=== PATIENT | male | born 1950 ===

== ENCOUNTER 2016-06-17 16:06 | Emergency (ER) | payer MEDICAID, MEDICARE ==
[2016-06-17 16:16] VITALS: TEMP 98.6
[2016-06-17] MEDS ORDERED: KETOROLAC TROMETHAMINE 30 MG/ML SOL IM ONE (17:16)
[2016-06-17] MEDS ORDERED: KETOROLAC TROMETHAMINE 30 MG/ML SOL ONE (17:18)
[2016-06-17 17:38] VITALS: BP 153/73; PULSE 75; RESP 18; O2SAT 96
== END 2016-06-17 17:52 | disposition home or self-care (01) | DRG 566 ==
LOC: ED 16:06
DX: M99.81 Other biomechanical lesions of cervical region (principal); M89.38 Hypertrophy of bone, other site
CPT/HCPCS: 72125; 93005; 99284; J1885

== ENCOUNTER 2016-06-26 10:32 | Emergency (ER) | payer MEDICARE, MEDICAID ==
[2016-06-26] MEDS ORDERED: KETOROLAC TROMETHAMINE 30 MG/ML SOL IM ONE (10:53)
[2016-06-26] MEDS ORDERED: APAP/HYDROCODONE 325/5 TAB PO ONE (10:53)
[2016-06-26] MEDS ORDERED: KETOROLAC TROMETHAMINE 30 MG/ML SOL ONE (11:08)
[2016-06-26] MEDS ORDERED: APAP/HYDROCODONE 325/5 TAB ONE (11:08)
[2016-06-26 15:29] VITALS: BP 146/65; PULSE 73; O2SAT 98
[2016-06-26 16:37] VITALS: RESP 16; TEMP 99.6
== END 2016-06-26 11:32 | disposition home or self-care (01) | DRG 554 ==
LOC: ED 10:32
DX: M19.041 Primary osteoarthritis, right hand (principal); M19.042 Primary osteoarthritis, left hand
CPT/HCPCS: 99283; J1885

== ENCOUNTER 2016-06-27 13:50 | Emergency (ER) | payer MEDICARE, MEDICAID ==
[2016-06-27 14:22] VITALS: BP 144/71; PULSE 75; RESP 18; TEMP 100.3; O2SAT 92
[2016-06-27] MEDS ORDERED: APAP/HYDROCODONE 325/5 TAB PO ONE (14:22)
[2016-06-27] MEDS ORDERED: ONDANSETRON 4 MG ODT BU ONE (14:22)
[2016-06-27] MEDS ORDERED: ONDANSETRON 4 MG ODT ONE (14:29)
[2016-06-27] MEDS ORDERED: APAP/HYDROCODONE 325/5 TAB ONE (14:29)
== END 2016-06-27 15:21 | disposition home or self-care (01) | DRG 203 ==
LOC: ED 13:50
DX: J20.8 Acute bronchitis due to other specified organisms (principal)
CPT/HCPCS: 87804; 99282; 99283

== ENCOUNTER 2016-06-28 12:57 | Emergency (ER) | payer MEDICARE, MEDICAID ==
[2016-06-28 13:24] VITALS: BP 142/71; PULSE 72; RESP 16; TEMP 98.9; O2SAT 99
[2016-06-28] MEDS ORDERED: APAP/HYDROCODONE 325/5 TAB PO ONE (13:32)
[2016-06-28] MEDS ORDERED: SODIUM CHLORIDE 0.9% FLUSH 10 ML SOL IV PRN (13:48)
[2016-06-28] MEDS ORDERED: APAP/HYDROCODONE 325/5 TAB ONE (13:48)
[2016-06-28] MEDS ORDERED: SODIUM CHLORIDE 0.9% 1000ML 1,000 ML IV ONE (13:50)
[2016-06-28 13:54] LABS: BASOPHILS % (AUTO) 1 % (0-3); EOSINOPHILS % (AUTO) 1 % (0-9); HEMATOCRIT 29 % (39-53); MEAN CORPUSCULAR HGB CONC 35.1 gm/dl (32.0-36.0); MEAN CORPUSCULAR VOLUME 82 fL (80-100); MONOCYTES % (AUTO) 11.4 % (0-12); NEUTROPHILS % (AUTO) 76.3 % (37-80)
[2016-06-28 14:04] LABS: CALCIUM 8.6 mg/dl (8.5-10.1); POTASSIUM 4.5 mMol/L (3.5-5.1)
== END 2016-06-28 15:00 | disposition home or self-care (01) | DRG 603 ==
LOC: ED 12:57
DX: L03.116 Cellulitis of left lower limb (principal); Z86.79 Personal history of other diseases of the circulatory system
CPT/HCPCS: 73660; 80048; 85025; 85610; 85730; 96365; 99283; 99284

== ENCOUNTER 2016-07-12 07:57 | Emergency (ER) | payer MEDICARE, MEDICAID ==
[2016-07-12 08:08] VITALS: RESP 20
[2016-07-12 10:03] VITALS: BP 187/83; PULSE 83; TEMP 98.3; O2SAT 93
[2016-07-12] MEDS ORDERED: FUROSEMIDE 40 MG SOL IV ONE (10:15)
[2016-07-12] MEDS ORDERED: FUROSEMIDE 40 MG SOL ONE (10:17)
[2016-07-12] MEDS ORDERED: SODIUM CHLORIDE 0.9% FLUSH 10 ML SOL IV PRN (10:25)
== END 2016-07-12 10:39 | disposition home or self-care (01) | DRG 948 ==
LOC: ED 07:57
DX: R60.0 Localized edema (principal)
CPT/HCPCS: 36415; 51798; 71020; 80053; 81001; 85025; 99285; J1940

== ENCOUNTER 2016-07-14 12:12 | Inpatient (IN) | payer MEDICARE, MEDICAID ==
[2016-07-14] MEDS ORDERED: DOCUSATE SODIUM 100 MG SGL PO PRN (13:05)
[2016-07-14] MEDS ORDERED: SENNOSIDES A AND B 8.6 MG TAB PO PRN (13:15)
[2016-07-14 13:26] LABS: BASOPHILS % (AUTO) 2 % (0-3); EOSINOPHILS % (AUTO) 3 % (0-9); HEMATOCRIT 25 % (39-53); MEAN CORPUSCULAR HGB CONC 34.8 gm/dl (32.0-36.0); MEAN CORPUSCULAR VOLUME 82 fL (80-100); MONOCYTES % (AUTO) 8.9 % (0-12); NEUTROPHILS % (AUTO) 73.5 % (37-80)
[2016-07-14 13:27] LABS: APPEARANCE,URINE Clear; BILIRUBIN,URINE NEGATIVE (NEGATIVE); COLOR,URINE Yellow; GLUCOSE, URINE (UA) NEGATIVE (NEGATIVE); KETONES,URINE NEGATIVE (NEGATIVE); LEUKOCYTE ESTERASE ,URINE NEGATIVE (NEGATIVE); NITRATE,URINE NEGATIVE (NEGATIVE); OCCULT BLOOD,URINE 2+ (NEG-TRACE); UROBILINOGEN,URINE 0.2 (0.2-1.0 EU)
[2016-07-14 13:41] LABS: WBC,URINE 0-3 (0-5AV/HPF)
[2016-07-14] MEDS: CIPROFLOXACIN HCL 500 MG TAB PO SCH ×2 (14:14→21:05)
[2016-07-14] MEDS: APAP/HYDROCODONE 325/5 TAB PO SCH ×2 (14:14→21:09)
[2016-07-14] MEDS: FUROSEMIDE 40 MG SOL IV SCH ×2 (14:14→21:04)
[2016-07-14] MEDS: VANCOMYCIN HYDROCHLORIDE 500 MG PDS IV SCH (14:15)
[2016-07-14] MEDS: PREGABALIN 25 MG CAP PO SCH ×2 (14:56→21:07)
[2016-07-14 16:17] LABS: ALBUMIN 2.3 gm/dl (3.4-5.0); CALCIUM 8.9 mg/dl (8.5-10.1); POTASSIUM 4.9 mMol/L (3.5-5.1)
[2016-07-14] MEDS: SPIRONOLACTONE 25 MG TAB PO SCH (17:01)
[2016-07-14] MEDS: NOVOLOG FLEXPEN SC SCH (17:53)
[2016-07-14] MEDS: SODIUM CHLORIDE 0.9% FLUSH 10 ML SOL IV PRN (21:04)
[2016-07-14] MEDS: ATORVASTATIN 10 MG TAB PO SCH (21:05)
[2016-07-14] MEDS: CARVEDILOL 12.5 MG TAB PO SCH (21:06)
[2016-07-14] MEDS: DULOXETINE HCL 30 MG CAPSULE.DR PO SCH (21:06)
[2016-07-14] MEDS: INSULIN GLARGINE, RECOMBINAN 100 U/ML SOL SC SCH (21:11)
[2016-07-15] MEDS: APAP/HYDROCODONE 325/5 TAB PO SCH ×5 (06:10→20:58)
[2016-07-15 07:26] LABS: CALCIUM 8.8 mg/dl (8.5-10.1); POTASSIUM 4.9 mMol/L (3.5-5.1)
[2016-07-15] MEDS: NOVOLOG FLEXPEN SC SCH ×5 (08:59→21:01)
[2016-07-15] MEDS ORDERED: AMLODIPINE 5 MG TAB PO SCH (09:00)
[2016-07-15] MEDS: DULOXETINE HCL 30 MG CAPSULE.DR PO SCH ×2 (09:55→21:03)
[2016-07-15] MEDS: ASPIRIN EC 81 MG PO SCH (09:56)
[2016-07-15] MEDS: TERAZOSIN HYDROCHLORIDE 1 MG CAP PO SCH (09:56)
[2016-07-15] MEDS: ENOXAPARIN 40 MG SOL SC SCH (09:56)
[2016-07-15] MEDS: AMLODIPINE 5 MG TAB PO SCH ×2 (09:57→20:02)
[2016-07-15] MEDS: CIPROFLOXACIN HCL 500 MG TAB PO SCH ×2 (09:58→20:57)
[2016-07-15] MEDS: INSULIN GLARGINE, RECOMBINAN 100 U/ML SOL SC SCH ×2 (09:58→21:06)
[2016-07-15] MEDS: SPIRONOLACTONE 25 MG TAB PO SCH (09:59)
[2016-07-15] MEDS: CARVEDILOL 12.5 MG TAB PO SCH ×2 (10:00→21:04)
[2016-07-15] MEDS: PREGABALIN 25 MG CAP PO SCH ×3 (10:01→20:58)
[2016-07-15] MEDS: FUROSEMIDE 40 MG SOL IV SCH ×2 (10:08→14:35)
[2016-07-15] MEDS: SODIUM CHLORIDE 0.9% FLUSH 10 ML SOL IV PRN ×4 (10:08→21:12)
[2016-07-15] MEDS: POLYETHYLENE GLYCOL 17 GM/1 TBS PDS PO SCH (10:19)
[2016-07-15] MEDS: VANCOMYCIN HYDROCHLORIDE 500 MG PDS IV SCH (13:20)
[2016-07-15] MEDS ORDERED: INSULIN GLARGINE, RECOMBINAN 100 U/ML SOL SC ONE (17:00)
[2016-07-15] MEDS: ATORVASTATIN 10 MG TAB PO SCH (21:04)
[2016-07-16] MEDS: NOVOLOG FLEXPEN SC SCH ×6 (00:14→18:03)
[2016-07-16] MEDS ORDERED: OXYCODONE HYDROCHLORIDE 5 MG TAB PO ONE (04:11)
[2016-07-16 07:45] LABS: CALCIUM 8.6 mg/dl (8.5-10.1); POTASSIUM 5.6 mMol/L (3.5-5.1)
[2016-07-16] MEDS: CIPROFLOXACIN HCL 500 MG TAB PO SCH ×2 (09:40→21:46)
[2016-07-16] MEDS: CARVEDILOL 12.5 MG TAB PO SCH ×2 (09:40→21:46)
[2016-07-16] MEDS: DULOXETINE HCL 30 MG CAPSULE.DR PO SCH ×2 (09:40→21:46)
[2016-07-16] MEDS: ASPIRIN EC 81 MG PO SCH (09:40)
[2016-07-16] MEDS: INSULIN GLARGINE, RECOMBINAN 100 U/ML SOL SC SCH ×2 (09:41→21:45)
[2016-07-16] MEDS: TERAZOSIN HYDROCHLORIDE 1 MG CAP PO SCH (09:41)
[2016-07-16] MEDS: ENOXAPARIN 40 MG SOL SC SCH (09:42)
[2016-07-16] MEDS: FUROSEMIDE 40 MG SOL IV SCH ×2 (09:42→13:37)
[2016-07-16] MEDS: APAP/HYDROCODONE 325/5 TAB PO SCH ×4 (09:42→21:46)
[2016-07-16] MEDS: PREGABALIN 25 MG CAP PO SCH ×3 (09:43→21:46)
[2016-07-16] MEDS: AMLODIPINE 5 MG TAB PO SCH (09:43)
[2016-07-16] MEDS: POLYETHYLENE GLYCOL 17 GM/1 TBS PDS PO SCH (09:43)
[2016-07-16] MEDS: SODIUM CHLORIDE 0.9% FLUSH 10 ML SOL IV PRN ×2 (09:43→13:38)
[2016-07-16] MEDS: OXYCODONE HYDROCHLORIDE 5 MG TAB PO PRN ×2 (11:24→18:25)
[2016-07-16] MEDS: VANCOMYCIN HYDROCHLORIDE 500 MG PDS IV SCH (13:37)
[2016-07-16] MEDS ORDERED: NOVOLOG FLEXPEN SC ONE (17:30)
[2016-07-16] MEDS: ATORVASTATIN 10 MG TAB PO SCH (21:44)
[2016-07-17] MEDS: OXYCODONE HYDROCHLORIDE 5 MG TAB PO PRN ×3 (00:41→13:56)
[2016-07-17 08:07] VITALS: BP 138/68; PULSE 86; RESP 20; TEMP 96.5; O2SAT 96
[2016-07-17 08:40] LABS: BASOPHILS % (AUTO) 2 % (0-3); EOSINOPHILS % (AUTO) 5 % (0-9); HEMATOCRIT 25 % (39-53); MEAN CORPUSCULAR HGB CONC 34.7 gm/dl (32.0-36.0); MEAN CORPUSCULAR VOLUME 83 fL (80-100); MONOCYTES % (AUTO) 10.7 % (0-12); NEUTROPHILS % (AUTO) 67.8 % (37-80)
[2016-07-17 08:45] LABS: CALCIUM 8.7 mg/dl (8.5-10.1); POTASSIUM 5.8 mMol/L (3.5-5.1)
[2016-07-17] MEDS: NOVOLOG FLEXPEN SC SCH ×3 (08:58→12:31)
[2016-07-17] MEDS: SODIUM CHLORIDE 0.9% FLUSH 10 ML SOL IV PRN ×2 (09:00→12:50)
[2016-07-17] MEDS: ASPIRIN EC 81 MG PO SCH (09:03)
[2016-07-17] MEDS: TERAZOSIN HYDROCHLORIDE 1 MG CAP PO SCH (09:03)
[2016-07-17] MEDS: DULOXETINE HCL 30 MG CAPSULE.DR PO SCH (09:04)
[2016-07-17] MEDS: SPIRONOLACTONE 25 MG TAB PO SCH (09:04)
[2016-07-17] MEDS: CARVEDILOL 12.5 MG TAB PO SCH (09:05)
[2016-07-17] MEDS: POLYETHYLENE GLYCOL 17 GM/1 TBS PDS PO SCH ×2 (09:07→09:08)
[2016-07-17] MEDS: CIPROFLOXACIN HCL 500 MG TAB PO SCH (09:11)
[2016-07-17] MEDS: APAP/HYDROCODONE 325/5 TAB PO SCH ×2 (09:12→12:37)
[2016-07-17] MEDS: FUROSEMIDE 40 MG SOL IV SCH (09:15)
[2016-07-17] MEDS: ENOXAPARIN 40 MG SOL SC SCH (09:16)
[2016-07-17] MEDS: INSULIN GLARGINE, RECOMBINAN 100 U/ML SOL SC SCH (09:16)
[2016-07-17] MEDS: PREGABALIN 25 MG CAP PO SCH (09:19)
[2016-07-17] MEDS: AMLODIPINE 5 MG TAB PO SCH (09:27)
[2016-07-17] MEDS ORDERED: ALTEPLASE/CATHFLO 2 MG PDS IV PRN (12:30)
[2016-07-17] MEDS: VANCOMYCIN HYDROCHLORIDE 500 MG PDS IV SCH (13:11)
== END 2016-07-17 15:05 | DRG 195 ==
LOC: ACUTE CARE 12:25
PROVIDERS: ADMIT Family Medicine; ATTEND Family Medicine
PROC: F01ZDZZ Gait and/or Balance Assessment (ICD-10-PCS; principal; 2016-07-16)
PROC: F01ZBZZ Bed Mobility Assessment (ICD-10-PCS; 2016-07-16)
PROC: F01ZCZZ Transfer Assessment (ICD-10-PCS; 2016-07-16)
DX: J18.9 Pneumonia, unspecified organism (principal); I50.9 Heart failure, unspecified; I11.0 Hypertensive heart disease with heart failure; E11.49 Type 2 diabetes mellitus with other diabetic neurological complication; Z86.2 Personal history of diseases of the blood and blood-forming organs and certain disorders involving the immune mechanism; Z79.4 Long term (current) use of insulin; M25.512 Pain in left shoulder; G89.29 Other chronic pain; Z89.422 Acquired absence of other left toe(s)
CPT/HCPCS: 36415; 51798; 71020; 80048; 80053; 81001; 82962; 83880; 85025; 87040; 93306; 94150; J1650; J1817; J1940; J3370; A4450; A6232; J1815; J2997

== ENCOUNTER 2016-07-19 09:55 | Emergency (ER) | payer MEDICARE, MEDICAID ==
[2016-07-19] MEDS ORDERED: ATROPINE 0.1 MG/ML SOL ONE (10:25)
[2016-07-19 10:31] VITALS: TEMP 97.4
[2016-07-19 10:31] LABS: BASOPHILS % (AUTO) 1 % (0-3); EOSINOPHILS % (AUTO) 4 % (0-9); HEMATOCRIT 22 % (39-53); MEAN CORPUSCULAR HGB CONC 34.7 gm/dl (32.0-36.0); MEAN CORPUSCULAR VOLUME 83 fL (80-100); MONOCYTES % (AUTO) 8.5 % (0-12); NEUTROPHILS % (AUTO) 71.4 % (37-80)
[2016-07-19 10:43] LABS: CALCIUM 8.5 mg/dl (8.5-10.1); GLOM FILT RATE 21 mL/min (>60); MAGNESIUM 2.4 mg/dl (1.8-2.4); POTASSIUM 6.5 mMol/L (3.5-5.1)
[2016-07-19 10:46] LABS: SODIUM 132 mMol/L (136-145)
[2016-07-19 10:58] VITALS: BP 114/55; PULSE 42; RESP 16; O2SAT 95
[2016-07-19] MEDS ORDERED: DEXTROSE 50% 1 VIAL SOL IV ONE (11:01)
[2016-07-19] MEDS ORDERED: INSULIN HUMAN REGULAR 100 U/ML SOL ONE (11:02)
[2016-07-19] MEDS: INSULIN HUMAN REGULAR 100 U/ML SOL IV ONE (11:04)
[2016-07-19] MEDS: DEXTROSE 50% 1 VIAL SOL IV ONE (11:05)
[2016-07-19] MEDS: SODIUM POLYSTYRENE SULFONATE 15 GM/60 ML SUS PO ONE (11:06)
[2016-07-19] MEDS ORDERED: SODIUM POLYSTYRENE SULFONATE 15 GM/60 ML SUS ONE (11:32)
== END 2016-07-19 11:15 | disposition short-term general hospital (02) | DRG 310 ==
LOC: ED 09:55
DX: R00.1 Bradycardia, unspecified (principal); E87.5 Hyperkalemia
CPT/HCPCS: 80048; 83735; 83880; 84100; 84484; 85025; 93005; 99284; J0461; J1815

== ENCOUNTER 2016-08-09 11:28 | Emergency (ER) | payer MEDICARE, MEDICAID ==
[2016-08-09] MEDS ORDERED: ALBUTEROL/IPRATROPIUM 1 VIAL SOL ONE (11:40)
[2016-08-09] MEDS: ALBUTEROL/IPRATROPIUM 1 VIAL SOL INH ONE (11:42)
[2016-08-09 11:43] VITALS: RESP 20; O2SAT 96
[2016-08-09 11:51] VITALS: BP 156/80; TEMP 97.8
[2016-08-09 12:00] VITALS: PULSE 82
== END 2016-08-09 12:15 | disposition home or self-care (01) | DRG 195 ==
LOC: ED 11:28
DX: J18.9 Pneumonia, unspecified organism (principal)
CPT/HCPCS: 99282; 99283; J7620

== ENCOUNTER 2016-08-13 08:51 | Inpatient (IN) | payer MEDICARE, MEDICAID ==
[2016-08-13] MEDS ORDERED: MORPHINE SULFATE 10 MG/ML SOL IV ONE ×2 (09:13→09:29)
[2016-08-13] MEDS ORDERED: FUROSEMIDE 40 MG SOL IV ONE ×2 (09:13→09:29)
[2016-08-13 09:33] LABS: BASOPHILS % (AUTO) 1 % (0-3); EOSINOPHILS % (AUTO) 8 % (0-9); HEMATOCRIT 26 % (39-53); MEAN CORPUSCULAR HGB CONC 32.9 gm/dl (32.0-36.0); MEAN CORPUSCULAR VOLUME 83 fL (80-100); MONOCYTES % (AUTO) 10.1 % (0-12); NEUTROPHILS % (AUTO) 64.4 % (37-80)
[2016-08-13] MEDS ORDERED: ALBUTEROL/IPRATROPIUM 1 VIAL SOL INH ONE (09:36)
[2016-08-13] MEDS ORDERED: ALBUTEROL/IPRATROPIUM 1 VIAL SOL ONE (09:37)
[2016-08-13] MEDS ORDERED: FUROSEMIDE 40 MG SOL ONE (09:37)
[2016-08-13] MEDS ORDERED: MORPHINE SULFATE 10 MG/ML SOL ONE (09:37)
[2016-08-13 09:53] LABS: CALCIUM 8.5 mg/dl (8.5-10.1); POTASSIUM 4.5 mMol/L (3.5-5.1)
[2016-08-13] MEDS ORDERED: METOLAZONE 2.5 MG TAB PO ONE (10:00)
[2016-08-13] MEDS: SODIUM CHLORIDE 0.9% FLUSH 10 ML SOL IV PRN ×3 (11:10→21:31)
[2016-08-13] MEDS ORDERED: POLYETHYLENE GLYCOL 17 GM/1 TBS PDS PO PRN (12:49)
[2016-08-13] MEDS ORDERED: MORPHINE SULFATE 10 MG/ML SOL IV PRN (12:54)
[2016-08-13] MEDS ORDERED: PIPERACILLIN/TAZOBACT 3.375 GM PDS IV ONE ×2 (14:20→20:45)
[2016-08-13] MEDS ORDERED: SODIUM CHLORIDE 0.9% 100 ML 100 ML IV ONE ×2 (14:20→20:45)
[2016-08-13] MEDS: ALBUTEROL/IPRATROPIUM 1 VIAL SOL INH SCH ×3 (14:27→20:40)
[2016-08-13] MEDS: APAP/HYDROCODONE 325/5 TAB PO SCH ×2 (14:27→20:33)
[2016-08-13] MEDS: FUROSEMIDE 40 MG SOL IV SCH ×2 (14:37→20:51)
[2016-08-13] MEDS: PIPERACILLIN/TAZOBACT 3.375 GM 3.375 GM in SODIUM CHLORIDE 0.9% 100 ML 100 ML IV SCH ×2 (14:37→20:54)
[2016-08-13] MEDS: PREGABALIN 25 MG CAP PO SCH ×2 (15:28→20:35)
[2016-08-13] MEDS: NOVOLOG FLEXPEN SC SCH (17:46)
[2016-08-13] MEDS: CARVEDILOL 12.5 MG TAB PO SCH (20:33)
[2016-08-13] MEDS: DOXYCYCLINE 100 MG TAB PO SCH (20:34)
[2016-08-13] MEDS: DULOXETINE HCL 30 MG CAPSULE.DR PO SCH (20:34)
[2016-08-13] MEDS: ATORVASTATIN 10 MG TAB PO SCH (20:34)
[2016-08-13] MEDS: AMLODIPINE 5 MG TAB PO SCH (20:37)
[2016-08-13] MEDS: INSULIN GLARGINE, RECOMBINAN 100 U/ML SOL SC SCH (21:29)
[2016-08-14] MEDS ORDERED: SODIUM CHLORIDE 0.9% 100 ML 100 ML IV ONE ×2 (01:59→12:54)
[2016-08-14] MEDS ORDERED: PIPERACILLIN/TAZOBACT 3.375 GM PDS IV ONE ×3 (01:59→21:15)
[2016-08-14] MEDS: PIPERACILLIN/TAZOBACT 3.375 GM 3.375 GM in SODIUM CHLORIDE 0.9% 100 ML 100 ML IV SCH ×3 (05:03→21:28)
[2016-08-14] MEDS: SODIUM CHLORIDE 0.9% FLUSH 10 ML SOL IV PRN ×5 (06:15→21:47)
[2016-08-14] MEDS ORDERED: METOLAZONE 2.5 MG TAB PO SCH ×3 (07:00→12:49)
[2016-08-14 07:39] LABS: CALCIUM 8.8 mg/dl (8.5-10.1); POTASSIUM 4.7 mMol/L (3.5-5.1)
[2016-08-14] MEDS: CARVEDILOL 12.5 MG TAB PO SCH ×2 (09:16→21:28)
[2016-08-14] MEDS: ASPIRIN EC 81 MG PO SCH (09:16)
[2016-08-14] MEDS: DULOXETINE HCL 30 MG CAPSULE.DR PO SCH ×2 (09:16→21:30)
[2016-08-14] MEDS: DOXYCYCLINE 100 MG TAB PO SCH ×2 (09:16→21:30)
[2016-08-14] MEDS: ALBUTEROL/IPRATROPIUM 1 VIAL SOL INH SCH ×4 (09:16→21:37)
[2016-08-14] MEDS: PREGABALIN 25 MG CAP PO SCH ×3 (09:18→21:35)
[2016-08-14] MEDS: ENOXAPARIN 30 MG SOL SC SCH (09:19)
[2016-08-14] MEDS: FUROSEMIDE 40 MG SOL IV SCH ×3 (09:37→21:29)
[2016-08-14] MEDS: TERAZOSIN HYDROCHLORIDE 1 MG CAP PO SCH (09:37)
[2016-08-14] MEDS: APAP/HYDROCODONE 325/5 TAB PO SCH ×3 (09:41→21:35)
[2016-08-14] MEDS: INSULIN GLARGINE, RECOMBINAN 100 U/ML SOL SC SCH ×2 (10:05→21:41)
[2016-08-14] MEDS: NOVOLOG FLEXPEN SC SCH ×2 (10:35→17:09)
[2016-08-14] MEDS: ATORVASTATIN 10 MG TAB PO SCH (21:29)
[2016-08-14] MEDS: AMLODIPINE 5 MG TAB PO SCH (21:31)
[2016-08-15] MEDS ORDERED: SODIUM CHLORIDE 0.9% 100 ML 100 ML IV ONE (05:19)
[2016-08-15] MEDS ORDERED: PIPERACILLIN/TAZOBACT 3.375 GM PDS IV ONE (05:19)
[2016-08-15] MEDS: SODIUM CHLORIDE 0.9% FLUSH 10 ML SOL IV PRN (05:27)
[2016-08-15] MEDS: PIPERACILLIN/TAZOBACT 3.375 GM 3.375 GM in SODIUM CHLORIDE 0.9% 100 ML 100 ML IV SCH (05:27)
[2016-08-15 07:34] LABS: CALCIUM 8.6 mg/dl (8.5-10.1); POTASSIUM 4.5 mMol/L (3.5-5.1)
[2016-08-15 07:36] LABS: BASOPHILS % (AUTO) 2 % (0-3); EOSINOPHILS % (AUTO) 13 % (0-9); HEMATOCRIT 27 % (39-53); MEAN CORPUSCULAR HGB CONC 34.7 gm/dl (32.0-36.0); MEAN CORPUSCULAR VOLUME 82 fL (80-100); MONOCYTES % (AUTO) 9.4 % (0-12); NEUTROPHILS % (AUTO) 56.7 % (37-80)
[2016-08-15 08:18] VITALS: BP 139/75; TEMP 97.8
[2016-08-15] MEDS: DOXYCYCLINE 100 MG TAB PO SCH (08:18)
[2016-08-15] MEDS: CARVEDILOL 12.5 MG TAB PO SCH (08:18)
[2016-08-15] MEDS: ASPIRIN EC 81 MG PO SCH (08:18)
[2016-08-15] MEDS: DULOXETINE HCL 30 MG CAPSULE.DR PO SCH (08:18)
[2016-08-15] MEDS: TERAZOSIN HYDROCHLORIDE 1 MG CAP PO SCH (08:19)
[2016-08-15] MEDS: PREGABALIN 25 MG CAP PO SCH (08:20)
[2016-08-15] MEDS: APAP/HYDROCODONE 325/5 TAB PO SCH (08:27)
[2016-08-15] MEDS: FUROSEMIDE 40 MG SOL IV SCH (08:27)
[2016-08-15] MEDS: ENOXAPARIN 30 MG SOL SC SCH (08:29)
[2016-08-15] MEDS: INSULIN GLARGINE, RECOMBINAN 100 U/ML SOL SC SCH (08:29)
[2016-08-15 09:07] VITALS: RESP 20
[2016-08-15] MEDS: ALBUTEROL/IPRATROPIUM 1 VIAL SOL INH SCH (09:07)
[2016-08-15 09:46] VITALS: PULSE 88
[2016-08-15] MEDS: NOVOLOG FLEXPEN SC SCH (09:54)
[2016-08-15 10:03] VITALS: O2SAT 94
== END 2016-08-15 11:08 | disposition home or self-care (01) | DRG 291 ==
LOC: ED 08:51 → ACUTE CARE 11:27
PROVIDERS: ADMIT Family Medicine; ATTEND Family Medicine
DX: I50.9 Heart failure, unspecified (principal); J18.9 Pneumonia, unspecified organism; J18.1 Lobar pneumonia, unspecified organism; E11.621 Type 2 diabetes mellitus with foot ulcer; L97.429 Non-pressure chronic ulcer of left heel and midfoot with unspecified severity; I11.0 Hypertensive heart disease with heart failure
CPT/HCPCS: 36415; 71010; 80048; 82962; 83880; 84484; 85025; 93005; 94150; 94640; 94664; 96374; 96375; 99284; 99285; J1817; J1940; J2270; J2543; J7620; A6232; J1650; J1815

== ENCOUNTER 2016-10-09 08:22 | Emergency (ER) | payer MEDICARE, MEDICAID ==
[2016-10-09 08:38] VITALS: PULSE 86; RESP 20; TEMP 99.3
[2016-10-09 09:00] LABS: BASOPHILS % (AUTO) 1 % (0-3); EOSINOPHILS % (AUTO) 5 % (0-9); HEMATOCRIT 26 % (39-53); MEAN CORPUSCULAR HGB CONC 34.6 gm/dl (32.0-36.0); MONOCYTES % (AUTO) 9.6 % (0-12); NEUTROPHILS % (AUTO) 71.6 % (37-80)
[2016-10-09 09:02] LABS: MEAN CORPUSCULAR VOLUME 81 fL (80-100)
[2016-10-09 10:35] VITALS: BP 162/79; O2SAT 93
== END 2016-10-09 09:40 | disposition home or self-care (01) | DRG 153 ==
LOC: ED 08:22
DX: J06.9 Acute upper respiratory infection, unspecified (principal); I50.9 Heart failure, unspecified
CPT/HCPCS: 36415; 71020; 85025; 99283

== ENCOUNTER 2016-11-12 08:32 | Emergency (ER) | payer MEDICARE, MEDICAID ==
[2016-11-12 09:29] LABS: BASOPHILS % (AUTO) 2 % (0-3); EOSINOPHILS % (AUTO) 2 % (0-9); HEMATOCRIT 23 % (39-53); MEAN CORPUSCULAR HGB CONC 35.8 gm/dl (32.0-36.0); MONOCYTES % (AUTO) 12.4 % (0-12); NEUTROPHILS % (AUTO) 66.2 % (37-80)
[2016-11-12 09:30] LABS: MEAN CORPUSCULAR VOLUME 80 fL (80-100)
[2016-11-12 09:46] LABS: ALBUMIN 2.8 gm/dl (3.4-5.0); ALT 54 IU/L (14-63); CALCIUM 8.5 mg/dl (8.5-10.1); GLOM FILT RATE 27 mL/min (>60); POTASSIUM 4.2 mMol/L (3.5-5.1); SODIUM 132 mMol/L (136-145)
[2016-11-12] MEDS ORDERED: SODIUM CHLORIDE 0.9% FLUSH 10 ML SOL IV PRN (10:24)
[2016-11-12] MEDS ORDERED: APAP/HYDROCODONE 325/5 TAB PO ONE (10:26)
[2016-11-12] MEDS ORDERED: APAP/HYDROCODONE 325/5 TAB ONE (10:30)
[2016-11-12 11:17] VITALS: TEMP 97.7
[2016-11-12 11:38] LABS: APPEARANCE,URINE Clear; BILIRUBIN,URINE NEGATIVE (NEGATIVE); COLOR,URINE Yellow; GLUCOSE, URINE (UA) NEGATIVE (NEGATIVE); KETONES,URINE NEGATIVE (NEGATIVE); LEUKOCYTE ESTERASE ,URINE NEGATIVE (NEGATIVE); NITRATE,URINE NEGATIVE (NEGATIVE); OCCULT BLOOD,URINE NEGATIVE (NEG-TRACE)
[2016-11-12 11:46] LABS: RBC,URINE NEG (0-3AV/HPF); WBC,URINE NEG (0-5AV/HPF)
[2016-11-12 14:23] VITALS: BP 136/62; PULSE 62; RESP 14; O2SAT 91
== END 2016-11-12 14:04 | DRG 684 ==
LOC: ED 08:32
DX: N17.9 Acute kidney failure, unspecified (principal); I50.9 Heart failure, unspecified; N18.9 Chronic kidney disease, unspecified
CPT/HCPCS: 36415; 71020; 80053; 81001; 83880; 84484; 85025; 99284

== ENCOUNTER 2017-02-16 18:08 | Emergency (ER) | payer MEDICARE, MEDICAID ==
[2017-02-16] MEDS ORDERED: NITROGLYCERIN 0.4 MG TAB SL ONE (18:52)
[2017-02-16] MEDS ORDERED: ASPIRIN 81 MG CHEWABLE CTB ONE (18:52)
[2017-02-16] MEDS ORDERED: SODIUM CHLORIDE 0.9% FLUSH 10 ML SOL IV PRN (18:53)
[2017-02-16] MEDS ORDERED: ASPIRIN 81 MG CHEWABLE CTB PO STA (18:53)
[2017-02-16] MEDS ORDERED: MORPHINE SULFATE 10 MG/ML SOL IV ONE ×2 (18:55→20:07)
[2017-02-16] MEDS: NITROGLYCERIN 0.4 MG TAB SL PRN ×2 (18:57→19:49)
[2017-02-16] MEDS ORDERED: MORPHINE SULFATE 10 MG/ML SOL ONE (19:07)
[2017-02-16 19:08] LABS: BASOPHILS % (AUTO) 2 % (0-3); EOSINOPHILS % (AUTO) 11 % (0-9); HEMATOCRIT 31 % (39-53); MEAN CORPUSCULAR HGB CONC 35.6 gm/dl (32.0-36.0); MEAN CORPUSCULAR VOLUME 82 fL (80-100); MONOCYTES % (AUTO) 8.9 % (0-12); NEUTROPHILS % (AUTO) 54.9 % (37-80)
[2017-02-16 19:26] LABS: ALBUMIN 3.1 gm/dl (3.4-5.0); CALCIUM 8.9 mg/dl (8.5-10.1); POTASSIUM 5.2 mMol/L (3.5-5.1)
[2017-02-16 19:47] VITALS: RESP 16; TEMP 98
[2017-02-16 21:54] VITALS: BP 151/83; PULSE 57; O2SAT 100
== END 2017-02-16 20:28 | disposition home or self-care (01) | DRG 313 ==
LOC: ED 18:08
DX: R07.9 Chest pain, unspecified (principal)
CPT/HCPCS: 71010; 80053; 82550; 84484; 85025; 85610; 85730; 93005; 96374; 99284; 99285; J2270

== ENCOUNTER 2017-02-23 16:27 | Emergency (ER) | payer OTHER ==
[2017-02-23 17:02] VITALS: RESP 21; TEMP 98.4
[2017-02-23] MEDS ORDERED: MORPHINE SULFATE 10 MG/ML SOL IM ONE (17:09)
[2017-02-23] MEDS ORDERED: KETOROLAC TROMETHAMINE 30 MG/ML SOL IM ONE (17:09)
[2017-02-23] MEDS ORDERED: KETOROLAC TROMETHAMINE 30 MG/ML SOL ONE (17:13)
[2017-02-23] MEDS ORDERED: MORPHINE SULFATE 10 MG/ML SOL ONE (17:13)
[2017-02-23 17:33] VITALS: BP 189/100; PULSE 79; O2SAT 95
== END 2017-02-23 17:37 | disposition home or self-care (01) | DRG 93 ==
LOC: ED 16:27
DX: G89.29 Other chronic pain (principal); M25.511 Pain in right shoulder; M25.512 Pain in left shoulder; M25.9 Joint disorder, unspecified
CPT/HCPCS: 99283; J1885; J2270

== ENCOUNTER 2017-02-24 09:57 | Emergency (ER) | payer OTHER ==
[2017-02-24 10:04] VITALS: TEMP 97.8
[2017-02-24] MEDS ORDERED: MORPHINE SULFATE 10 MG/ML SOL IV ONE (10:25)
[2017-02-24] MEDS ORDERED: SODIUM CHLORIDE 0.9% 1000ML 1,000 ML IV SCH (10:30)
[2017-02-24] MEDS ORDERED: MORPHINE SULFATE 10 MG/ML SOL ONE ×2 (10:37→14:44)
[2017-02-24 10:43] LABS: BASOPHILS % (AUTO) 2 % (0-3); EOSINOPHILS % (AUTO) 8 % (0-9); HEMATOCRIT 34 % (39-53); MEAN CORPUSCULAR HGB CONC 34.2 gm/dl (32.0-36.0); MEAN CORPUSCULAR VOLUME 87 fL (80-100); MONOCYTES % (AUTO) 9.5 % (0-12); NEUTROPHILS % (AUTO) 55.2 % (37-80)
[2017-02-24 10:58] LABS: CALCIUM 8.8 mg/dl (8.5-10.1)
[2017-02-24 12:06] LABS: APPEARANCE,URINE Slightly Cloudy; BILIRUBIN,URINE NEGATIVE (NEGATIVE); COLOR,URINE Yellow; GLUCOSE, URINE (UA) TRACE (NEGATIVE); KETONES,URINE NEGATIVE (NEGATIVE); LEUKOCYTE ESTERASE ,URINE NEGATIVE (NEGATIVE); NITRATE,URINE NEGATIVE (NEGATIVE); OCCULT BLOOD,URINE NEGATIVE (NEG-TRACE); UROBILINOGEN,URINE 0.2 (0.2-1.0 EU)
[2017-02-24 12:27] LABS: RBC,URINE 0-1 (0-3AV/HPF); WBC,URINE 0-1 (0-5AV/HPF)
[2017-02-24] MEDS ORDERED: NOVOLOG FLEXPEN SC ONE ×2 (12:45→12:55)
[2017-02-24 14:00] VITALS: O2SAT 92
[2017-02-24] MEDS ORDERED: MORPHINE SULFATE 10 MG/ML SOL IM ONE (14:38)
[2017-02-24 15:00] VITALS: BP 120/69; PULSE 71; RESP 20
== END 2017-02-24 14:56 | DRG 641 ==
LOC: ED 09:57
DX: E86.0 Dehydration (principal); R51 Headache; W19.XXXA Unspecified fall, initial encounter
CPT/HCPCS: 36415; 70450; 71010; 80048; 81001; 82962; 84484; 85025; 93005; 99285; J2270; J1815

== ENCOUNTER 2017-03-01 10:45 | Outpatient (CLI) | payer OTHER | END 2017-03-01 10:46 | disposition home or self-care (01) | DRG 558 | LOC: CONVCARE 10:45 | PROVIDERS: ATTEND Orthopaedic Surgery | DX: M75.102 Unspecified rotator cuff tear or rupture of left shoulder, not specified as traumatic (principal); M25.511 Pain in right shoulder; M25.811 Other specified joint disorders, right shoulder | CPT/HCPCS: 73030 ==

== ENCOUNTER 2017-03-10 10:07 | Emergency (ER) | payer OTHER ==
[2017-03-10 10:21] VITALS: RESP 20
[2017-03-10 10:43] LABS: BASOPHILS % (AUTO) 1 % (0-3); EOSINOPHILS % (AUTO) 1 % (0-9); HEMATOCRIT 40 % (39-53); MEAN CORPUSCULAR HGB CONC 34.7 gm/dl (32.0-36.0); MEAN CORPUSCULAR VOLUME 87 fL (80-100); MONOCYTES % (AUTO) 7.2 % (0-12); NEUTROPHILS % (AUTO) 71.7 % (37-80)
[2017-03-10 10:56] LABS: ALBUMIN 3.8 gm/dl (3.4-5.0); CALCIUM 9.3 mg/dl (8.5-10.1); POTASSIUM 5.3 mMol/L (3.5-5.1)
[2017-03-10] MEDS: SODIUM CHLORIDE 0.9% 1000ML 1,000 ML IV ONE (11:00)
[2017-03-10] MEDS ORDERED: HYDROMORPHONE 1 MG/ML SYRINGE ONE (11:12)
[2017-03-10] MEDS: HYDROMORPHONE 1 MG/ML SYRINGE IV PRN (11:16)
[2017-03-10 11:49] LABS: APPEARANCE,URINE Clear; BILIRUBIN,URINE NEGATIVE (NEGATIVE); COLOR,URINE Yellow; GLUCOSE, URINE (UA) 2+ (NEGATIVE); KETONES,URINE NEGATIVE (NEGATIVE); LEUKOCYTE ESTERASE ,URINE NEGATIVE (NEGATIVE); NITRATE,URINE NEGATIVE (NEGATIVE); OCCULT BLOOD,URINE NEGATIVE (NEG-TRACE); UROBILINOGEN,URINE 0.2 (0.2-1.0 EU)
[2017-03-10 13:18] VITALS: BP 129/74; PULSE 78; TEMP 96.7; O2SAT 92
== END 2017-03-10 13:30 | DRG 948 ==
LOC: ED 10:07
DX: R53.1 Weakness (principal); E11.9 Type 2 diabetes mellitus without complications; Z91.81 History of falling; Z79.4 Long term (current) use of insulin; S00.83XA Contusion of other part of head, initial encounter; M25.561 Pain in right knee
CPT/HCPCS: 36415; 80053; 81001; 85025; 99285; J1170

== ENCOUNTER 2017-07-10 19:33 | Emergency (ER) | payer OTHER ==
[2017-07-10] MEDS ORDERED: HYDRALAZINE HYDROCHLORIDE 20 MG/ML SOL IV ONE (20:38)
[2017-07-10 20:42] LABS: BASOPHILS % (AUTO) 2 % (0-3); EOSINOPHILS % (AUTO) 7 % (0-9); HEMATOCRIT 34 % (39-53); HEMOGLOBIN 11.5 gm/dl (13.5-17.7); LYMPHOCYTES % (AUTO) 21.8 % (10-50); MEAN CORPUSCULAR HEMOGLOBIN 30.2 pg (27.0-32.0); MEAN CORPUSCULAR HGB CONC 33.8 gm/dl (32.0-36.0); MEAN CORPUSCULAR VOLUME 89 fL (80-100); MONOCYTES % (AUTO) 8.5 % (0-12); NEUTROPHILS % (AUTO) 60.9 % (37-80)
[2017-07-10] MEDS ORDERED: HYDRALAZINE HYDROCHLORIDE 20 MG/ML SOL ONE (20:42)
[2017-07-10] MEDS ORDERED: MORPHINE SULFATE 10 MG/ML SOL IV ONE (20:45)
[2017-07-10] MEDS ORDERED: MORPHINE SULFATE 10 MG/ML SOL ONE (20:56)
[2017-07-10 20:59] LABS: BLOOD UREA NITROGEN 20 mg/dl (7-18); CALCIUM 8.6 mg/dl (8.5-10.1); CARBON DIOXIDE 27.6 mEq/L (21-32); CHLORIDE 104 mMol/L (98-107); CREATININE 1.21 mg/dl (0.80-1.30); GLOM FILT RATE 60 mL/min (>60); GLUCOSE 229 mg/dl (74-106); POTASSIUM 4.4 mMol/L (3.5-5.1); SODIUM 138 mMol/L (136-145); TROP I < 0.017 ng/ml (0.000-0.056)
[2017-07-10 21:19] LABS: APPEARANCE,URINE Clear; BILIRUBIN,URINE NEGATIVE (NEGATIVE); COLOR,URINE Yellow; GLUCOSE, URINE (UA) 1+ (NEGATIVE); KETONES,URINE NEGATIVE (NEGATIVE); LEUKOCYTE ESTERASE ,URINE NEGATIVE (NEGATIVE); NITRATE,URINE NEGATIVE (NEGATIVE); OCCULT BLOOD,URINE TRACE LYSED (NEG-TRACE); UROBILINOGEN,URINE 0.2 (0.2-1.0 EU)
[2017-07-10 21:27] VITALS: TEMP 98.6
[2017-07-10] MEDS ORDERED: LABETALOL HYDROCHLORIDE 5 MG/ML SOL IV ONE ×2 (21:34→21:43)
[2017-07-10 21:37] LABS: BACTERIA 1+ (< 1+); CRYSTALS NEGATIVE (0-3 AVE/HPF); EPITHELIAL CELLS 0-1 (SQUAMOUS); RBC,URINE 0-1 (0-3AV/HPF); WBC,URINE 0-1 (0-5AV/HPF)
[2017-07-11 05:56] VITALS: PULSE 73
[2017-07-11 05:57] VITALS: BP 158/70; RESP 13; O2SAT 97
== END 2017-07-11 00:05 | disposition home or self-care (01) | DRG 305 ==
LOC: ED 19:33
DX: I16.9 Hypertensive crisis, unspecified (principal)
CPT/HCPCS: 80048; 81001; 84484; 85025; 93005; 99285; J0360; J2270; J3490

== ENCOUNTER 2017-07-13 18:11 | Emergency (ER) | payer OTHER ==
[2017-07-13 18:33] VITALS: TEMP 98.9
[2017-07-13] MEDS ORDERED: MORPHINE SULFATE 10 MG/ML SOL IV ONE ×2 (19:00→20:24)
[2017-07-13] MEDS ORDERED: HYDRALAZINE HYDROCHLORIDE 20 MG/ML SOL IV ONE (19:02)
[2017-07-13 19:19] LABS: BASOPHILS % (AUTO) 1 % (0-3); EOSINOPHILS % (AUTO) 7 % (0-9); HEMATOCRIT 31 % (39-53); HEMOGLOBIN 10.7 gm/dl (13.5-17.7); LYMPHOCYTES % (AUTO) 21.9 % (10-50); MEAN CORPUSCULAR HEMOGLOBIN 31.2 pg (27.0-32.0); MEAN CORPUSCULAR HGB CONC 34.8 gm/dl (32.0-36.0); MEAN CORPUSCULAR VOLUME 90 fL (80-100); MONOCYTES % (AUTO) 9.1 % (0-12); NEUTROPHILS % (AUTO) 60.4 % (37-80)
[2017-07-13] MEDS ORDERED: MORPHINE SULFATE 10 MG/ML SOL ONE ×2 (19:19→20:26)
[2017-07-13] MEDS ORDERED: HYDRALAZINE HYDROCHLORIDE 20 MG/ML SOL ONE (19:20)
[2017-07-13 19:29] LABS: LACTIC ACID 1.2 mMol/L (0.0-2.0)
[2017-07-13 19:35] LABS: ALBUMIN 2.7 gm/dl (3.4-5.0); ALKALINE PHOSPHATASE 92 IU/L (46-116); ALT 28 IU/L (14-63); AST 22 IU/L (15-37); BILIRUBIN,TOTAL 0.3 mg/dl (0.2-1.0); BLOOD UREA NITROGEN 25 mg/dl (7-18); CALCIUM 8.2 mg/dl (8.5-10.1); CARBON DIOXIDE 27.3 mEq/L (21-32); CHLORIDE 103 mMol/L (98-107); CREATININE 1.42 mg/dl (0.80-1.30); GLOM FILT RATE 50 mL/min (>60); GLUCOSE 344 mg/dl (74-106); POTASSIUM 4.5 mMol/L (3.5-5.1); SODIUM 136 mMol/L (136-145); TOTAL PROTEIN 6.9 gm/dl (6.4-8.2); TROP I < 0.017 ng/ml (0.000-0.056)
[2017-07-13 20:03] LABS: APPEARANCE,URINE Clear; BILIRUBIN,URINE NEGATIVE (NEGATIVE); COLOR,URINE Yellow; GLUCOSE, URINE (UA) 2+ (NEGATIVE); KETONES,URINE NEGATIVE (NEGATIVE); LEUKOCYTE ESTERASE ,URINE NEGATIVE (NEGATIVE); NITRATE,URINE NEGATIVE (NEGATIVE); OCCULT BLOOD,URINE NEGATIVE (NEG-TRACE); UROBILINOGEN,URINE 0.2 (0.2-1.0 EU)
[2017-07-13 20:12] LABS: BACTERIA TRACE (< 1+); CRYSTALS NEGATIVE (0-3 AVE/HPF); EPITHELIAL CELLS 0-1 (SQUAMOUS); RBC,URINE 0-1 (0-3AV/HPF); WBC,URINE NEGATIVE (0-5AV/HPF)
[2017-07-13] MEDS ORDERED: LABETALOL HYDROCHLORIDE 5 MG/ML SOL IV ONE ×2 (21:19→21:30)
[2017-07-13] MEDS ORDERED: APAP/HYDROCODONE 325/5 TAB PO ONE (21:19)
[2017-07-13] MEDS ORDERED: APAP/HYDROCODONE 325/5 TAB ONE ×2 (21:30→21:32)
[2017-07-13 22:19] VITALS: PULSE 79
[2017-07-13 22:20] VITALS: BP 193/94; RESP 16; O2SAT 98
== END 2017-07-13 22:12 | disposition home or self-care (01) | DRG 392 ==
LOC: ED 18:11
DX: R10.11 Right upper quadrant pain (principal); I50.9 Heart failure, unspecified; R19.7 Diarrhea, unspecified
CPT/HCPCS: 74176; 80053; 81001; 83880; 84484; 85025; 99285; J0360; J2270; A9270-GY; J3490

== ENCOUNTER 2017-08-18 14:22 | Emergency (ER) | payer OTHER ==
[2017-08-18 14:53] VITALS: RESP 20; TEMP 98.8
[2017-08-18] MEDS: HYDROMORPHONE HCL 2 MG/ML SOL IM ONE (14:53)
[2017-08-18] MEDS ORDERED: HYDROMORPHONE HCL 2 MG/ML SOL ONE (14:55)
[2017-08-18 15:25] VITALS: BP 180/86; PULSE 70; O2SAT 95
== END 2017-08-18 15:37 | disposition home or self-care (01) | DRG 605 ==
LOC: ED 14:22
DX: S80.01XA Contusion of right knee, initial encounter (principal); L97.522 Non-pressure chronic ulcer of other part of left foot with fat layer exposed; W01.0XXA Fall on same level from slipping, tripping and stumbling without subsequent striking against object, initial encounter; S90.811A Abrasion, right foot, initial encounter; S90.812A Abrasion, left foot, initial encounter
CPT/HCPCS: 15275; 73562; 96372; 99212; 99283; J1170; A6232; Q4137

== ENCOUNTER 2018-02-14 10:04 | Outpatient (CLI) | payer OTHER ==
[2017-10-18 15:40] VITALS: O2SAT 99
== END 2018-02-14 10:05 | disposition home or self-care (01) | DRG 561 ==
LOC: CONVCARE 10:04
PROVIDERS: ATTEND Orthopaedic Surgery
DX: Z47.89 Encounter for other orthopedic aftercare (principal); Z98.890 Other specified postprocedural states
CPT/HCPCS: 73030

== ENCOUNTER 2018-05-06 13:02 | Emergency (ER) | payer OTHER ==
[2018-05-06 13:11] VITALS: TEMP 97
[2018-05-06 13:46] LABS: BASOPHILS % (AUTO) 2 % (0-3); EOSINOPHILS % (AUTO) 8 % (0-9); HEMATOCRIT 35 % (39-53); HEMOGLOBIN 11.4 gm/dl (13.5-17.7); LYMPHOCYTES % (AUTO) 17.3 % (10-50); MEAN CORPUSCULAR HEMOGLOBIN 30.4 pg (27.0-32.0); MEAN CORPUSCULAR HGB CONC 32.6 gm/dl (32.0-36.0); MEAN CORPUSCULAR VOLUME 93 fL (80-100); MONOCYTES % (AUTO) 8.4 % (0-12); NEUTROPHILS % (AUTO) 64.2 % (37-80)
[2018-05-06 13:56] LABS: ALBUMIN 2.7 gm/dl (3.4-5.0); BILIRUBIN,TOTAL 0.3 mg/dl (0.2-1.0); CALCIUM 8.5 mg/dl (8.5-10.1); CARBON DIOXIDE 27.1 mEq/L (21-32); CREATININE 1.81 mg/dl (0.80-1.30); POTASSIUM 4.1 mMol/L (3.5-5.1); TOTAL PROTEIN 6.3 gm/dl (6.4-8.2)
[2018-05-06 15:50] VITALS: RESP 18; O2SAT 97
[2018-05-06 15:51] VITALS: BP 176/82; PULSE 51
== END 2018-05-06 14:47 | disposition home or self-care (01) | DRG 639 ==
LOC: ED 13:02
DX: E11.649 Type 2 diabetes mellitus with hypoglycemia without coma (principal); Z79.4 Long term (current) use of insulin
CPT/HCPCS: 36415; 80053; 82962; 85025; 99282; 99283

== ENCOUNTER 2018-08-10 09:44 | Emergency (ER) | payer MEDICARE, MEDICAID ==
[2018-08-10] MEDS ORDERED: ONDANSETRON HCL 4 MG/2 ML SOL IV ONE (10:38)
[2018-08-10] MEDS ORDERED: PANTOPRAZOLE SODIUM 40 MG/10 ML PDS IV ONE (10:38)
[2018-08-10] MEDS ORDERED: PANTOPRAZOLE SODIUM 40 MG/10 ML PDS ONE (10:44)
[2018-08-10] MEDS ORDERED: ONDANSETRON HCL 4 MG/2 ML SOL ONE (10:44)
[2018-08-10] MEDS ORDERED: SODIUM CHLORIDE 0.9% 1000ML 1,000 ML IV SCH (10:45)
[2018-08-10 10:48] LABS: BASOPHILS % (AUTO) 1 % (0-3); EOSINOPHILS % (AUTO) 0 % (0-9); HEMATOCRIT 41 % (39-53); HEMOGLOBIN 13.6 gm/dl (13.5-17.7); LYMPHOCYTES % (AUTO) 8.2 % (10-50); MEAN CORPUSCULAR HEMOGLOBIN 29.3 pg (27.0-32.0); MEAN CORPUSCULAR HGB CONC 32.7 gm/dl (32.0-36.0); MEAN CORPUSCULAR VOLUME 89 fL (80-100); MONOCYTES % (AUTO) 7.4 % (0-12); NEUTROPHILS % (AUTO) 83.5 % (37-80)
[2018-08-10 11:00] LABS: ALBUMIN 2.7 gm/dl (3.4-5.0); BILIRUBIN,TOTAL 0.5 mg/dl (0.2-1.0); CALCIUM 8.6 mg/dl (8.5-10.1); CARBON DIOXIDE 24.5 mEq/L (21-32); CREATININE 2.27 mg/dl (0.80-1.30); TOTAL PROTEIN 6.9 gm/dl (6.4-8.2)
[2018-08-10 11:19] VITALS: TEMP 98.3; O2SAT 95
[2018-08-10 11:27] LABS: APPEARANCE,URINE Clear; BILIRUBIN,URINE 1+ (NEGATIVE); COLOR,URINE Dark yellow; GLUCOSE, URINE (UA) TRACE (NEGATIVE); KETONES,URINE TRACE (NEGATIVE); LEUKOCYTE ESTERASE ,URINE NEGATIVE (NEGATIVE); NITRATE,URINE NEGATIVE (NEGATIVE); OCCULT BLOOD,URINE 2+ (NEG-TRACE)
[2018-08-10 11:37] LABS: BACTERIA 1+ (< 1+); CRYSTALS NEGATIVE (0-3 AVE/HPF); ICTOTEST,URINE NEGATIVE (NEGATIVE); RBC,URINE 0-2 (0-3AV/HPF); WBC,URINE 0-2 (0-5AV/HPF)
[2018-08-10 11:58] VITALS: BP 191/89; PULSE 78; RESP 20
== END 2018-08-10 12:08 | disposition home or self-care (01) | DRG 392 ==
LOC: ED 09:44
DX: K52.9 Noninfective gastroenteritis and colitis, unspecified (principal); E11.9 Type 2 diabetes mellitus without complications; Z79.4 Long term (current) use of insulin; R06.2 Wheezing
CPT/HCPCS: 71046; 80053; 81001; 83880; 85025; 96365; 96374; 96375; 99283; 99284; J2405

== ENCOUNTER 2018-08-12 23:29 | Observation (INO) | payer MEDICARE, MEDICAID ==
[2018-08-13] MEDS ORDERED: MORPHINE SULFATE 10 MG/ML SOL IV ONE (00:05)
[2018-08-13] MEDS ORDERED: PROCHLORPERAZINE EDISYLATE 5 MG/ML SOL IV ONE (00:05)
[2018-08-13] MEDS ORDERED: PANTOPRAZOLE SODIUM 40 MG/10 ML PDS IV ONE (00:05)
[2018-08-13 00:06] LABS: BASOPHILS % (AUTO) 1 % (0-3); EOSINOPHILS % (AUTO) 5 % (0-9); HEMATOCRIT 39 % (39-53); HEMOGLOBIN 13.2 gm/dl (13.5-17.7); LYMPHOCYTES % (AUTO) 26.1 % (10-50); MEAN CORPUSCULAR HEMOGLOBIN 30.2 pg (27.0-32.0); MEAN CORPUSCULAR HGB CONC 34.1 gm/dl (32.0-36.0); MEAN CORPUSCULAR VOLUME 89 fL (80-100); MONOCYTES % (AUTO) 10.1 % (0-12); NEUTROPHILS % (AUTO) 57.9 % (37-80)
[2018-08-13] MEDS ORDERED: PANTOPRAZOLE SODIUM 40 MG/10 ML PDS ONE (00:10)
[2018-08-13] MEDS ORDERED: PROCHLORPERAZINE EDISYLATE 5 MG/ML SOL ONE (00:10)
[2018-08-13] MEDS: SODIUM CHLORIDE 0.9% 1000ML 1,000 ML IV SCH ×3 (00:12→03:20)
[2018-08-13] MEDS ORDERED: MORPHINE SULFATE 10 MG/ML SOL ONE (00:15)
[2018-08-13 00:28] LABS: ALBUMIN 2.7 gm/dl (3.4-5.0); BILIRUBIN,TOTAL 0.3 mg/dl (0.2-1.0); CALCIUM 8.4 mg/dl (8.5-10.1); CREATININE 2.25 mg/dl (0.80-1.30); POTASSIUM 4.9 mMol/L (3.5-5.1); TOTAL PROTEIN 6.9 gm/dl (6.4-8.2)
[2018-08-13] MEDS ORDERED: ALBUTEROL HFA 60 PUFF/INHALER INH PRN (00:34)
[2018-08-13] MEDS ORDERED: ONDANSETRON 4 MG ODT PO PRN (00:34)
[2018-08-13] MEDS ORDERED: MORPHINE SULFATE 10 MG/ML SOL IV PRN (00:37)
[2018-08-13] MEDS ORDERED: PROCHLORPERAZINE EDISYLATE 5 MG/ML SOL IV PRN (00:37)
[2018-08-13] MEDS ORDERED: SODIUM CHLORIDE 0.9% 1000ML 1,000 ML IV SCH (00:45)
[2018-08-13] MEDS: CIPROFLOXACIN HCL 500 MG TAB PO SCH ×2 (02:06→12:50)
[2018-08-13] MEDS ORDERED: INSULIN GLARGINE, RECOMBINAN 100 U/ML SOL SC SCH (08:00)
[2018-08-13] MEDS ORDERED: CARVEDILOL 3.125 MG TAB PO SCH (08:00)
[2018-08-13] MEDS ORDERED: CHOLECALCIFEROL 1,000 IU TAB PO SCH (09:00)
[2018-08-13] MEDS ORDERED: APAP/HYDROCODONE 1 EACH TABLET PO SCH (09:00)
[2018-08-13] MEDS ORDERED: PREGABALIN 25 MG CAP PO SCH (09:00)
[2018-08-13] MEDS ORDERED: PANTOPRAZOLE SODIUM 40 MG ECT PO SCH (09:00)
[2018-08-13] MEDS ORDERED: DULOXETINE HCL 30 MG CAPSULE.DR PO SCH (09:00)
[2018-08-13] MEDS ORDERED: FUROSEMIDE 20 MG TAB PO SCH (09:00)
[2018-08-13] MEDS ORDERED: LISINOPRIL 5 MG TAB PO SCH (09:00)
[2018-08-13] MEDS ORDERED: PNEUMOCOCCAL VACCINE 0.5 ML SOL IM ONE (12:43)
[2018-08-13] MEDS ORDERED: INFLUENZA HIGH DOSE VACCINE 0.5 ML SUS IM ONE (12:43)
[2018-08-13 12:46] VITALS: BP 135/69; PULSE 67; RESP 19; TEMP 94.8; O2SAT 87
== END 2018-08-13 14:05 | disposition home or self-care (01) | DRG 392 ==
LOC: ED 23:29 → ACUTE CARE 08-13 00:26
PROVIDERS: ADMIT Family Medicine; ATTEND Family Medicine
DX: K52.9 Noninfective gastroenteritis and colitis, unspecified (principal); K62.5 Hemorrhage of anus and rectum; E11.69 Type 2 diabetes mellitus with other specified complication; Z79.4 Long term (current) use of insulin; E86.0 Dehydration
CPT/HCPCS: 80053; 82962; 85025; 90662; 90732; 96374; 96375; 99235; 99284; J0780; J1817; J2270; A9270-GY; G0008